=== PATIENT | female | born 1965 | race Caucasian/White ===

== ENCOUNTER 2022-06-19 20:05 | Emergency (ER) | payer MEDICARE, MEDICAID ==
[~2022-06-19] VITALS: Ht 170.2 cm; Wt 104.5 kg
[2022-06-19] MEDS ORDERED: METO50TA7 PO ×3 (21:42→22:35)
[2022-06-19] MEDS ORDERED: AMLO1TAB25 PO ×2 (21:42→22:34)
[2022-06-19] MEDS ORDERED: HYDR-3490 PO ×2 (21:42→22:34)
[2022-06-19 21:47] LABS: BASO % 0.4 % (0.0-1.0); EOS # 0.2 10^3/uL (0.0-0.5); EOS % 2.2 % (0.0-3.0); HEMATOCRIT 40.2 % (36.0-47.0); HEMOGLOBIN 13.6 g/dl (12.0-15.5); LYMPH # 2.6 10^3/uL (1.5-5.0); LYMPH % 38.6 % (24.0-44.0); MEAN CORPUSCULAR HEMOGLOBIN 30.3 pg (27.0-33.0); MEAN CORPUSCULAR HGB CONC 33.8 g/dl (32.0-36.5); MEAN CORPUSCULAR VOLUME 89.5 fl (80.0-96.0); MONO # 0.3 10^3/uL (0.0-0.8); MONO % 4.5 % (2.0-8.0); NEUTROPHILS # 3.6 10^3/uL (1.5-8.5); PLATELET COUNT, AUTOMATED 211 10^3/uL (150-450); RED BLOOD COUNT 4.49 10^6/uL (4.00-5.40); WHITE BLOOD COUNT 6.7 10^3/uL (4.0-10.0)
[2022-06-19 21:59] LABS: INR 0.91; PROTHROMBIN TIME 12.5 SECONDS (12.5-14.5)
[2022-06-19 22:17] LABS: CK-MB VALUE MASS 1.4 NG/ML (<3.6); MB/CK RELATIVE INDEX 1.52 (< OR =4)
[2022-06-19] MEDS ORDERED: CEPHALEXIN 500 MG CAP PO ONE (22:25)
[2022-06-19 22:32] LABS: ALBUMIN 4.3 GM/DL (3.2-5.2); ALT/SGPT 25 U/L (12-78); BILIRUBIN,DIRECT 0.1 MG/DL (0.0-0.2); BILIRUBIN,TOTAL 0.4 MG/DL (0.2-1.0); BLOOD UREA NITROGEN 16 MG/DL (7-18); CALCIUM LEVEL 10.3 MG/DL (8.5-10.1); CARBON DIOXIDE LEVEL 29 MEQ/L (21-32); CHLORIDE LEVEL 103 MEQ/L (98-107); GLOMERULAR FILTRATION RATE > 60.0 (>51); GLUCOSE, FASTING 121 MG/DL (70-100); LIPASE 175 U/L (73-393); POTASSIUM SERUM 3.7 MEQ/L (3.5-5.1); SODIUM LEVEL 137 MEQ/L (136-145); TOTAL PROTEIN 7.5 GM/DL (6.4-8.2)
[2022-06-19] MEDS ORDERED: CEPH500C PO (23:01)
[2022-06-19 23:42] VITALS: BP 157/75
== END 2022-06-19 23:43 | disposition home or self-care (01) ==
LOC: M ED 20:05 → EDBD 20:05 → M ED 23:43
DX: I10 Essential (primary) hypertension (principal); E11.9 Type 2 diabetes mellitus without complications; F17.200 Nicotine dependence, unspecified, uncomplicated; F12.10 Cannabis abuse, uncomplicated; Z88.8 Allergy status to other drugs, medicaments and biological substances

== ENCOUNTER → 2022-07-05 | Outpatient (CLI) | payer MEDICARE, MEDICAID ==
[~2022-07-05] MED LIST: AMLO1TAB25 PO; CEPH500C PO; HYDR-3490 PO; METO50TA7 PO
[2022-07-05 15:58] LABS: BASO % 0.5 % (0.0-1.0); EOS # 0.1 10^3/uL (0.0-0.5); EOS % 1.6 % (0.0-3.0); HEMATOCRIT 42.6 % (36.0-47.0); HEMOGLOBIN 14.1 g/dl (12.0-15.5); LYMPH # 2.3 10^3/uL (1.5-5.0); LYMPH % 31.2 % (24.0-44.0); MEAN CORPUSCULAR HEMOGLOBIN 30.4 pg (27.0-33.0); MEAN CORPUSCULAR HGB CONC 33.1 g/dl (32.0-36.5); MEAN CORPUSCULAR VOLUME 91.8 fl (80.0-96.0); MONO # 0.6 10^3/uL (0.0-0.8); NEUTROPHILS # 4.3 10^3/uL (1.5-8.5); NEUTROPHILS % 58.4 % (36.0-66.0); PLATELET COUNT, AUTOMATED 242 10^3/uL (150-450); RED BLOOD COUNT 4.64 10^6/uL (4.00-5.40); WHITE BLOOD COUNT 7.4 10^3/uL (4.0-10.0)
[2022-07-05 16:08] LABS: ALBUMIN 4.1 GM/DL (3.2-5.2); ALT/SGPT 35 U/L (12-78); BILIRUBIN,TOTAL 0.3 MG/DL (0.2-1.0); BLOOD UREA NITROGEN 17 MG/DL (7-18); CALCIUM LEVEL 9.9 MG/DL (8.5-10.1); CARBON DIOXIDE LEVEL 33 MEQ/L (21-32); CHLORIDE LEVEL 105 MEQ/L (98-107); CHOLESTEROL LEVEL 192 MG/DL (<200); CHOLESTEROL RISK RATIO 4.571 (<5); CREATININE FOR GFR 0.85 MG/DL (0.55-1.30); GLOMERULAR FILTRATION RATE > 60.0 (>51); GLUCOSE, FASTING 165 MG/DL (70-100); HDL CHOLESTEROL 42 MG/DL (>40); NON-HDL-C 150 MG/DL; POTASSIUM SERUM 4.4 MEQ/L (3.5-5.1); SODIUM LEVEL 143 MEQ/L (136-145); TOTAL PROTEIN 7.5 GM/DL (6.4-8.2); TRIGLYCERIDES LEVEL 423 MG/DL (<150)
[2022-07-05 21:45] LABS: HEMOGLOBIN A1c 6.4 %
== END ==
LOC: M PLALAB 13:42
PROVIDERS: ATTEND Physician Assistant
DX: I10 Essential (primary) hypertension (principal)

== ENCOUNTER → 2022-07-28 | Outpatient (CLI) | payer MEDICARE, MEDICAID | LOC: M SOG 11:22 | PROVIDERS: ATTEND Physician Assistant | DX: M25.521 Pain in right elbow (principal) ==

== ENCOUNTER → 2022-08-07 | Outpatient (CLI) | payer MEDICARE, MEDICAID | LOC: M SOG 15:07 | PROVIDERS: ATTEND Orthopaedic Surgery Hand Surgery | DX: M25.511 Pain in right shoulder (principal) ==

== ENCOUNTER → 2022-11-01 | Outpatient (CLI) | payer MEDICARE, MEDICAID ==
[2022-11-01 17:42] LABS: HEMATOCRIT 39.6 % (36.0-47.0); HEMOGLOBIN 13.4 g/dl (12.0-15.5); MEAN CORPUSCULAR HGB CONC 33.8 g/dl (32.0-36.5); MEAN CORPUSCULAR VOLUME 91.7 fl (80.0-96.0); PLATELET COUNT, AUTOMATED 246 10^3/uL (150-450); RED BLOOD COUNT 4.32 10^6/uL (4.00-5.40); WHITE BLOOD COUNT 6.9 10^3/uL (4.0-10.0)
[2022-11-01 18:04] LABS: LIPASE 56 U/L (12-53)
[2022-11-01 18:06] LABS: ALBUMIN 4.3 G/DL (3.2-5.2); ALKALINE PHOSPHATASE 59 U/L (46-116); ALT/SGPT 29 U/L (7.0-40); AMYLASE 92 U/L (30-118); AST/SGOT 16 U/L (<34); BILIRUBIN,TOTAL 0.3 MG/DL (0.3-1.2); BLOOD UREA NITROGEN 18 MG/DL (9-23); CALCIUM LEVEL 9.5 MG/DL (8.5-10.1); CARBON DIOXIDE LEVEL 32 MMOL/L (20-31); CHLORIDE LEVEL 104 MMOL/L (98-107); CREATININE FOR GFR 0.77 MG/DL (0.55-1.30); GLOMERULAR FILTRATION RATE > 60.0 (>51); GLUCOSE, FASTING 128 MG/DL (60-100); POTASSIUM SERUM 3.9 MMOL/L (3.5-5.1); SODIUM LEVEL 142 MMOL/L (136-145)
[2022-11-01 18:48] LABS: HEPATITIS C VIRUS ABY INDEX > 11.0 INDEX (<0.8)
== END ==
LOC: M PLALAB 15:11
PROVIDERS: ATTEND Physician Assistant
DX: R73.03 Prediabetes (principal); K76.9 Liver disease, unspecified

== ENCOUNTER → 2023-02-16 | Outpatient (CLI) | payer MEDICARE, MEDICAID ==
[2023-02-16 18:28] LABS: ALBUMIN 4.5 G/DL (3.2-5.2); ALKALINE PHOSPHATASE 59 U/L (46-116); ALT/SGPT < 9 U/L (7.0-40); AST/SGOT 12 U/L (<34); BILIRUBIN,TOTAL 0.6 MG/DL (0.3-1.2); BLOOD UREA NITROGEN 22 MG/DL (9-23); CALCIUM LEVEL 9.1 MG/DL (8.5-10.1); CARBON DIOXIDE LEVEL 30 MMOL/L (20-31); CHLORIDE LEVEL 105 MMOL/L (98-107); CREATININE FOR GFR 0.91 MG/DL (0.55-1.30); GLOMERULAR FILTRATION RATE > 60.0 (>51); GLUCOSE, FASTING 114 MG/DL (60-100); POTASSIUM SERUM 4.1 MMOL/L (3.5-5.1); SODIUM LEVEL 142 MMOL/L (136-145); TOTAL PROTEIN 7.1 G/DL (5.7-8.2)
== END ==
LOC: M PLALAB 15:50
PROVIDERS: ATTEND Physician Assistant
DX: R73.03 Prediabetes (principal)

== ENCOUNTER → 2023-09-07 | Outpatient (CLI) | payer MEDICARE, MEDICAID | LOC: M RAD 13:30 | PROVIDERS: ATTEND Physician Assistant | DX: Z12.2 Encounter for screening for malignant neoplasm of respiratory organs (principal); F17.219 Nicotine dependence, cigarettes, with unspecified nicotine-induced disorders ==

== ENCOUNTER → 2023-11-13 | Outpatient (CLI) | payer MEDICARE, MEDICAID | LOC: M RAD 09:04 | PROVIDERS: ATTEND Physician Assistant | DX: K76.9 Liver disease, unspecified (principal) ==

== ENCOUNTER → 2023-11-27 | Outpatient (CLI) | payer MEDICARE, MEDICAID | LOC: M PLAIMG 10:09 → M PLALAB 10:09 | PROVIDERS: ATTEND Student in an Organized Health Care Education/Training Program | DX: E55.9 Vitamin D deficiency, unspecified (principal); S89.91XA Unspecified injury of right lower leg, initial encounter; I10 Essential (primary) hypertension; E66.09 Other obesity due to excess calories; Z98.890 Other specified postprocedural states; X58.XXXA Exposure to other specified factors, initial encounter; Y92.9 Unspecified place or not applicable; Y93.9 Activity, unspecified; Y99.9 Unspecified external cause status; Z79.899 Other long term (current) drug therapy ==

== ENCOUNTER → 2023-11-27 | Outpatient (CLI) | payer MEDICARE, MEDICAID ==
[2023-11-27 14:21] LABS: BASO % 0.5 % (0.0-1.0); EOS # 0.1 10^3/uL (0.0-0.5); EOS % 1.5 % (0.0-3.0); HEMATOCRIT 41.2 % (36.0-47.0); HEMOGLOBIN 14.2 g/dl (12.0-15.5); LYMPH # 1.7 10^3/uL (1.5-5.0); LYMPH % 23.6 % (24.0-44.0); MEAN CORPUSCULAR HEMOGLOBIN 32.4 pg (27.0-33.0); MEAN CORPUSCULAR HGB CONC 34.5 g/dl (32.0-36.5); MEAN CORPUSCULAR VOLUME 94.1 fl (80.0-96.0); MONO # 0.5 10^3/uL (0.0-0.8); MONO % 6.1 % (2.0-8.0); PLATELET COUNT, AUTOMATED 225 10^3/uL (150-450); RED BLOOD COUNT 4.38 10^6/uL (4.00-5.40); WHITE BLOOD COUNT 7.4 10^3/uL (4.0-10.0)
[2023-11-27 14:33] LABS: ALKALINE PHOSPHATASE 57 U/L (46-116); ALT/SGPT 17 U/L (7.0-40); AST/SGOT 10 U/L (<34); BILIRUBIN,TOTAL 0.2 MG/DL (0.3-1.2); BLOOD UREA NITROGEN 32 MG/DL (9-23); CALCIUM LEVEL 10.4 MG/DL (8.5-10.1); CARBON DIOXIDE LEVEL 30 MMOL/L (20-31); CHLORIDE LEVEL 106 MMOL/L (98-107); CHOLESTEROL LEVEL 180 MG/DL (<200); CHOLESTEROL RISK RATIO 4.09 (<5); CREATININE FOR GFR 0.78 MG/DL (0.55-1.30); FREE T4 0.94 NG/DL (0.89-1.76); GLOMERULAR FILTRATION RATE > 60.0 (>51); GLUCOSE, FASTING 136 MG/DL (60-100); HEMOGLOBIN A1c 5.7 % (4.0-6.0); LDL CHOLESTEROL 60.4 MG/DL (<100); POTASSIUM SERUM 4.3 MMOL/L (3.5-5.1); SODIUM LEVEL 137 MMOL/L (136-145); THYROID STIMULATING HORMONE 1.736 uIU/ML (0.55-4.78); TOTAL PROTEIN 6.6 G/DL (5.7-8.2); TRIGLYCERIDES LEVEL 378 MG/DL (<150)
[2023-11-28 08:44] LABS: TOTAL 25(OH) VITAMIN D 18.5 NG/ML (20.0-100.0)
== END ==
LOC: M PLALAB 10:17
PROVIDERS: ATTEND Physician Assistant
DX: E83.52 Hypercalcemia (principal); I10 Essential (primary) hypertension; S89.91XA Unspecified injury of right lower leg, initial encounter; E66.09 Other obesity due to excess calories; X58.XXXA Exposure to other specified factors, initial encounter; Y92.9 Unspecified place or not applicable; Y93.9 Activity, unspecified; Y99.9 Unspecified external cause status; Z79.899 Other long term (current) drug therapy

== ENCOUNTER → 2023-11-27 | Outpatient (REF) | payer MEDICARE, MEDICAID | LOC: M SFHCPLAZ 16:52 | PROVIDERS: ATTEND Student in an Organized Health Care Education/Training Program | DX: S89.91XA Unspecified injury of right lower leg, initial encounter (principal) ==

== ENCOUNTER → 2023-12-07 | Outpatient (CLI) | payer MEDICARE, MEDICAID | LOC: M PLAIMG 07:05 | PROVIDERS: ATTEND Student in an Organized Health Care Education/Training Program | DX: S83.281A Other tear of lateral meniscus, current injury, right knee, initial encounter (principal); Y93.9 Activity, unspecified; Y92.9 Unspecified place or not applicable ==

== ENCOUNTER → 2024-02-07 | Outpatient (CLI) | payer MEDICARE, MEDICAID | LOC: M SOG 07:59 | PROVIDERS: ATTEND Physician Assistant | DX: M25.511 Pain in right shoulder (principal) ==

== ENCOUNTER → 2024-02-16 | Outpatient (CLI) | payer MEDICARE, MEDICAID | LOC: M RAD 14:06 | PROVIDERS: ATTEND Physician Assistant | DX: M25.511 Pain in right shoulder (principal) ==

== ENCOUNTER → 2024-03-25 | Outpatient (CLI) | payer MEDICARE, MEDICAID ==
[2024-03-25 19:00] LABS: BLOOD UREA NITROGEN 22 MG/DL (9-23); CALCIUM LEVEL 9.4 MG/DL (8.3-10.6); CARBON DIOXIDE LEVEL 31 MMOL/L (20-31); CHLORIDE LEVEL 107 MMOL/L (98-107); CREATININE FOR GFR 0.71 MG/DL (0.55-1.30); GLOMERULAR FILTRATION RATE > 60.0 (>45); GLUCOSE, FASTING 92 MG/DL (74-106); SODIUM LEVEL 141 MMOL/L (136-145)
[2024-03-27 13:38] LABS: RUBEOLA IgG ANTIBODY > 300.00 AU/mL (>16.49)
== END ==
LOC: M PLALAB 14:26
PROVIDERS: ATTEND Physician Assistant
DX: E83.52 Hypercalcemia (principal); Z78.9 Other specified health status

== ENCOUNTER → 2025-05-06 | Outpatient (CLI) | payer MEDICARE, MEDICAID ==
[2025-05-06 19:06] LABS: ALT/SGPT 23.0 U/L (7.0-40); AST/SGOT 17.0 U/L (<34); CALCIUM LEVEL 9.9 MG/DL (8.3-10.6); CARBON DIOXIDE LEVEL 31.0 MMOL/L (20-31); CHLORIDE LEVEL 105.0 MMOL/L (98-107); CREATININE FOR GFR 0.98 MG/DL (0.55-1.30); GLOMERULAR FILTRATION RATE 65.7 (>45); POTASSIUM SERUM 4.3 MMOL/L (3.5-5.1); SODIUM LEVEL 144.0 MMOL/L (136-145)
== END ==
LOC: M PLALAB 14:38
PROVIDERS: ATTEND Nurse Practitioner Family
DX: E83.52 Hypercalcemia (principal)